=== PATIENT | female | born 1985 | race African-American/Black ===

== ENCOUNTER 2024-05-24 10:15 | Emergency (ER) | payer MEDICAID, OTHER ==
[~2024-05-24] VITALS: Ht 167.6 cm; Wt 110.4 kg
[2024-05-24 12:27] VITALS: BP 152/100; PULSE 63; RESP 18; TEMP 98.2; O2SAT 100
[2024-05-24] MEDS ORDERED: ZOFR4T PO (12:27)
[2024-05-24] MEDS ORDERED: IBUP-1455 PO (12:27)
[2024-05-24] MEDS: ONDANSETRON ODT 4 MG TAB PO ONE (12:35)
[2024-05-24] MEDS: KETOROLAC TROMETH 30 MG/ML 1ML VIAL IM ONE (12:35)
== END 2024-05-24 12:56 | disposition home or self-care (01) ==
LOC: ER 10:15
DX: S06.0X0A Concussion without loss of consciousness, initial encounter (principal); I10 Essential (primary) hypertension; W20.8XXA Other cause of strike by thrown, projected or falling object, initial encounter; Y93.89 Activity, other specified; Y92.89 Other specified places as the place of occurrence of the external cause; Y99.0 Civilian activity done for income or pay
CPT/HCPCS: 70450; 96372; 99285; J1885; Q0162